=== PATIENT | female | born 1960 | race Caucasian/White ===

== ENCOUNTER → 2020-12-08 | Outpatient (CLI) | payer OTHER ==
[~2020-12-08] MED LIST: IOHEXOL 350 MG/ML 100 ML VIAL. IV ONE
--- NOTE | 2020-12-08 17:19 | RAD ---
EXAM: CT chest with contrast - pulmonary embolus protocol CLINICAL HISTORY: Reason: SHORTNESS OF BREATH / Spl. Instructions: / History: . COMPARISON: None. TECHNIQUE: CT of the chest following the administration of intravenous contrast during the pulmonary arterial phase. Axial, coronal and sagittal reformatted images were generated including MIP images. ---PQRS compliance statement - One or more of the following individualized dose reduction techniques were utilized for this study: 1. Automated exposure control 2. Adjustment of the mA and/or kV according to patient size 3. Use of iterative reconstruction technique--- FINDINGS: CHEST: Diagnostic quality: Adequate. Pulmonary emboli: No pulmonary emboli to the level of the subsegmental branches. More peripheral ves sels are not well assessed. Right heart strain: None Pulmonary arteries: Normal in caliber. Heart is not enlarged. No pericardial effusion. No pleural effusion or pneumothorax. No axillary lymphadenopathy. No mediastinal or hilar lymphadenopathy. No suspicious lung nodule or mass is seen. Linear and bandlike opacities lower lobes likely scarring/ atelectasis. Visualized Upper abdomen: Cholecystectomy clips are seen. Upper abdomen is grossly unremarkable. Bones: No aggressive osseous lesion is seen. IMPRESSION: 1. No pulmonary emboli to the level of the subsegmental branches. More peripheral vessels are not we ll assessed. 2. No suspicious lung nodule or mass. 3. Linear opacities in lower lobes likely scarring/atelectasis. No lobar consolidation. Electronically signed by: Cory Rodriguez MD (12/08/2020 5:16 PM) [place]
== END ==
LOC: CT 16:29
PROVIDERS: ATTEND Specialist
DX: I26.99 Other pulmonary embolism without acute cor pulmonale (principal); Z90.49 Acquired absence of other specified parts of digestive tract
CPT/HCPCS: 71275; Q9967